=== PATIENT | female | born 1980 | race Caucasian/White ===

== ENCOUNTER 2020-05-02 21:37 | Emergency (ER) | payer OTHER, SELFPAY ==
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
--- NOTE | 2020-05-02 21:45 | ECG_ITS ---
Measurements Intervals [place] Rate: 116 P: 248 CT: 236 QRS: 91 QRSD: 92 T: 62 QT: 333 QTc: 463 Interpretive Statements SINUS TACHYCARDIA RIGHT AXIS DEVIATION MINIMAL Q WAVES- INF/LAT LEADS BASELINE WANDER- I, V1-V2, V4-V6 ABNORMAL ECG Electronically Signed On 05-03-2020 6:57:38 CDT by Thompson Iniguez D.O.
[2020-05-02 21:50] VITALS: BP 135/80; PULSE 108; RESP 18; TEMP 36.8; O2SAT 98
[2020-05-02 22:04] LABS: Basophils Absolute Auto 0.06 K/mm3 (0.00-0.10); Basophils Percent Auto 0.7 % (0.0-1.0); Eosinophils Absolute Auto 0.06 K/mm3 (0.02-0.50); Eosinophils Percent Auto 0.7 % (1.0-6.0); Hematocrit 41.4 % (35.0-49.0); Hemoglobin 14.3 g/dL (12.0-15.0); Immature Granulocyte Absolute 0.02 K/mm3 (0.00-0.00); Immature Granulocyte Percent A 0.2 % (0.0-0.0); Lymphocytes Absolute Auto 3.12 K/mm3 (1.10-4.50); Mean Corpuscular HGB Conc 34.5 g/dL (32.0-36.0); Mean Corpuscular Hemoglobin 35.5 pg (27.0-31.0); Mean Corpuscular Volume 102.7 fL (78.0-102.0); Mean Platelet Volume 9.2 fl (9.2-11.8); Monocytes Percent Auto 8.3 % (2.0-11.0); Neutrophils Absolute Auto 4.5 K/mm3 (1.7-7.2); Neutrophils Percent Auto 53.1 % (50.0-70.0); Platelet Count Result 327 K/mm3 (150-420); Red Blood Count 4.03 M/mm3 (4.20-5.40); Red Cell Distribution Width 13.2 % (11.6-14.4); White Blood Count 8.4 K/mm3 (4.8-10.8)
[2020-05-02 22:28] LABS: Alanine Aminotransferase 57 U/L (14-59); Albumin Level 3.8 g/dL (3.4-5.0); Alkaline Phosphatase 68 U/L (46-116); Anion Gap 18.9 mmol/L (7-16); Aspartate Amino Transferase 51 U/L (15-37); Bilirubin,Total 0.3 mg/dL (0.00-1.00); Blood Urea Nitrogen 8 mg/dL (7-18); Calcium 8.6 mg/dL (8.5-10.1); Carbon Dioxide 22 mmol/L (21-32); Chloride 103 mmol/L (98-108); Estimated CRCL calculation 61 ml/min; Estimated Glomerular Filt Rate > 60; Glucose 82 mg/dL (70-99); Osmolality Calculated 287 mOsm/kg (285-295); Potassium 3.9 mmol/L (3.5-5.1); Salicylate 6.2 mg/dL (2.8-20.0); Sodium 140 mmol/L (136-145); Thyroid Stimulating Hormone 2.04 uIU/mL (0.36-3.74); Total Protein 7.5 g/dL (6.4-8.2)
[2020-05-02 22:34] LABS: Acetaminophen 0 ug/mL (10-30)
[2020-05-02 22:35] LABS: Ethanol 366 mg/dL (0-6)
[2020-05-02] MEDS: TETANUS,DIPHTHERIA,AC PERTUSSIS ADULT 0.5 ML (ADACEL) IM (22:38)
[2020-05-02 22:46] LABS: Add Urine Microscopic? YES; Appearance Urine Clear (Clear); Bilirubin Urine Negative (Negative); Blood Urine 1+ (Negative); Color Urine Yellow (Yellow); Glucose Urine UA Negative (Negative); Ketones Urine Negative (Negative); Leukocyte Esterase Ur Negative LEU/UL (Negative); Nitrate Urine Negative (Negative); Protein Urine Negative (Negative); Specific Grav Ur <= 1.005 (1.010-1.020); Urobilinogen Urine 0.2 mg/dL (0.2-1.0); pH Urine 5.5 (5.0-8.0)
[2020-05-02 22:53] LABS: Amphetamine Screen Urine Negative (Negative); Barbiturate Screen Urine Negative (Negative); Benzodiazepines Screen Urine Negative (Negative); Cannabinoid Screen Urine Positive (Negative); Cocaine Screen Urine Negative (Negative); Methadone Screen Urine Negative (Negative); Opiate Screen Urine Negative (Negative); Phencyclidine Screen Urine Negative (Negative)
[2020-05-02 22:59] LABS: Bacteria Urine 2+ /hpf; RBC Urine 0-2 /hpf (0-2); Squamous Epithelial Cell Urine Rare /hpf (Few); WBC Urine 0-3 /hpf (0-3)
--- NOTE | 2020-05-03 01:51 | PC.NURSE ---
Call placed to 2nd floor for ED Hold until pt. can be evaluated in AM. Pt. to go to Rm [id number].
[2020-05-03 02:00] VITALS: BP 107/70; PULSE 104; RESP 20; TEMP 36.7; O2SAT 95
--- NOTE | 2020-05-03 02:27 | PC.NURSE ---
To room via w/c from ER accompanied by staff. Alert oriented color good. Dressing L wrist D&I. Pt states is hungry. [place] sdandwich & isela mist given. Sitter in room.
--- NOTE | 2020-05-03 02:43 | PC.NURSE ---
Pt has not voiced ideas of harming self since to room.
--- NOTE | 2020-05-03 03:00 | PC.NURSE ---
Pt ambulated to BR gait steady. Pt voided. Remains alert, cooperative. No voiced ideas of harming self.
[2020-05-03] MEDS: LORazepam 0.5 MG TABLET PO (03:06)
--- NOTE | 2020-05-03 03:09 | PC.NURSE ---
Ativan 0.5mg po given for sleep, per request. Sitter remains in room.
--- NOTE | 2020-05-03 03:20 | PC.NURSE ---
Resting quietly, resp even. TV on. Sitter in room. No voiced ideas of harming self.
[2020-05-03 04:00] VITALS: BP 105/56; PULSE 86; RESP 20; TEMP 36.7; O2SAT 94
--- NOTE | 2020-05-03 04:01 | PC.NURSE ---
Has slept for short intervals, resp even. Cooperative, alert. No voiced ideas of harming self. Sitter in room.
--- NOTE | 2020-05-03 04:50 | PC.NURSE ---
Sleeping, resp even. No signs of discomfort noted. No voiced ideas of causing harm to self . Sitter in room.
--- NOTE | 2020-05-03 05:54 | PC.NURSE ---
Watching TV. No signs of discomfort noted. No voiced ideas of doing harm to self.
[2020-05-03 06:03] VITALS: BP 100/70; PULSE 110; RESP 20; TEMP 36.2; O2SAT 97
[2020-05-03] MEDS: ACETAMINOPHEN 500 MG TABLET 1000 MG PO ×2 (07:27→14:15)
[2020-05-03 07:49] VITALS: BP 108/78; PULSE 103; RESP 20; TEMP 36.7; O2SAT 96
--- NOTE | 2020-05-03 08:20 | PC.NURSE ---
PT RESTING PER BED. ATE 50% OF BREAKFAST. STATES PAIN TO L WRIST IS BETTER. RATES A 9 ON 1-10 SCALE. L WRIST PROPPED UP ON PILLOW. PT DENIES SUICIDAL IDEATIONS BUT STATES SHE IS SAD. SHE'S TEARFUL AT TIMES. REMAINS IN DIRECT OBSERVATION OF NURSE.
[2020-05-03 08:31] LABS: Ethanol 42 mg/dL (0-6)
--- NOTE | 2020-05-03 08:50 | PC.NURSE ---
PT SLEEPING. NO DISTRESS NOTED. REMAINS IN DIRECT OBSERVATION OF NURSE.
--- NOTE | 2020-05-03 09:11 | PC.NURSE ---
[facility] NOTIFIED OF NEED FOR CONSULT PER DR. OH'S ORDER.
--- NOTE | 2020-05-03 09:19 | PC.NURSE ---
PT CONTINUES TO SLEEP. NO DISTRESS NOTED. REMAINS IN DIRECT OBSERVATION OF NURSE.
--- NOTE | 2020-05-03 09:56 | PC.NURSE ---
PT UP TO BR TO VOID AND BACK TO BED. GAIT STEADY. CONTINUES TO DENY SUICIDAL THOUGHTS OR IDEATIONS. RESTING IN BED WITHOUT COMPLAINT. REMAINS IN DIRECT OBSERVATION OF NURSE.
--- NOTE | 2020-05-03 10:21 | PC.NURSE ---
PT SLEEPING, NO DISTRESS NOTED. PT CONTINUES TO BE IN DIRECT OBSERVATION OF NURSE.
[2020-05-03 10:53] VITALS: BP 124/83; PULSE 102; RESP 20; TEMP 36.7; O2SAT 97
--- NOTE | 2020-05-03 10:55 | PC.NURSE ---
[facility] called to notify they will be here as soon as they can.
--- NOTE | 2020-05-03 10:55 | PC.NURSE ---
WATCHING TV PER BED. DENIES SUICIDAL THOUGHTS. STATES SHE'S JUST SAD . HAS NO OTHER COMPLAINTS. STATES L WRIST ISN'T THROBBING MUCH EARLIER. REMAINS IN DIRECT OBSERVATION OF NURSE.
--- NOTE | 2020-05-03 11:25 | PC.NURSE ---
Pt sleeping. Remains in direct observation of nurse.
--- NOTE | 2020-05-03 11:46 | PC.NURSE ---
[facility] here consulting with patient in room.
--- NOTE | 2020-05-03 12:16 | PCDIET ---
[facility] counselor has completed her evaluation and recommends inpatient placement to a psychiatric facility. Dr. Avila notified of plan. [facility] placing calls to facilities searching out placement.
--- NOTE | 2020-05-03 12:49 | PCDIET ---
Pt resting per bed. Continues to deny suicidal ideations. Kept chips off lunch tray for later. States she is not hungry at this time. Remains in direct observation of nurse.
--- NOTE | 2020-05-03 13:20 | PC.NURSE ---
Pt sleeping. Remains in sight of nurse.
--- NOTE | 2020-05-03 14:27 | PC.NURSE ---
Kwesi MANDUJANO from [facility] in [place] to collect information on patient to take to [facility] assessment team. Pt resting per bed. denies suicidal ideations at present.
--- NOTE | 2020-05-03 14:49 | PC.NURSE ---
Pt sleeping. No distress noted. Remains in direct vision of nurse.
[2020-05-03 17:03] VITALS: BP 121/74; PULSE 90; RESP 20; TEMP 36.2; O2SAT 97
--- NOTE | 2020-05-03 17:26 | PC.NURSE ---
Savanna from [facility] in [place] called and stated they would accept patient. ER notified. 05/03/2020 @ 2160
--- NOTE | 2020-05-03 17:28 | PC.NURSE ---
[facility] notified of need for transfer.
--- NOTE | 2020-05-03 17:29 | PC.NURSE ---
1530 Patient resting quietly in bed. No c/o.
--- NOTE | 2020-05-03 17:30 | PC.NURSE ---
1630 Patient up to bathroom. Gait steady. Returned to bed Sitting up in bed. Pleasant and cooperative. Noted to be tearful. Nurse explained that there is a room available for her at the [facility] in [place]. Patient agreeable to transfer to the facility.
--- NOTE | 2020-05-03 17:33 | PC.NURSE ---
1730 Patient sitting up in bed watching TV. No c/o or suicidal ideation verbalized.
--- NOTE | 2020-05-03 18:10 | PC.NURSE ---
1800 [facility] here to transfer patient to [facility].
--- NOTE | 2020-05-03 18:11 | PC.NURSE ---
[address] in [facility] notified of patient leaving by ambulance and ETA 2 hours.
== END 2020-05-03 18:00 ==
LOC: CHSED 05-03 09:13 → CHS2ND 05-03 09:41
PROVIDERS: Emergency Provider Emergency Medicine
DX: S61.512A Laceration without foreign body of left wrist, initial encounter (principal); F32.2 Major depressive disorder, single episode, severe without psychotic features; F10.920 Alcohol use, unspecified with intoxication, uncomplicated; X78.1XXA Intentional self-harm by knife, initial encounter
CPT/HCPCS: 12002; 36415; 80053; 80307; 81001; 84443; 85025; 90471; 90715; 93005; 99284; 99285; A9270

== ENCOUNTER 2023-04-02 12:35 | Emergency (ER) | payer OTHER, SELFPAY ==
[2023-04-02 12:39] VITALS: BP 130/79; PULSE 98; RESP 20; TEMP 36.8; O2SAT 98
[2023-04-02 13:08] LABS: Basophils Absolute Auto 0.04 K/mm3 (0.00-0.10); Basophils Percent Auto 0.5 % (0.0-1.0); Eosinophils Absolute Auto 0.02 K/mm3 (0.02-0.50); Eosinophils Percent Auto 0.2 % (1.0-6.0); Hematocrit 35.9 % (35.0-49.0); Hemoglobin 11.3 g/dL (12.0-15.0); Immature Granulocyte Absolute 0.03 K/mm3 (0.00-0.00); Immature Granulocyte Percent A 0.4 % (0.0-0.0); Lymphocytes Absolute Auto 1.65 K/mm3 (1.10-4.50); Lymphocytes Percent Auto 19.3 % (18.0-42.0); Mean Corpuscular HGB Conc 31.5 g/dL (32.0-36.0); Mean Corpuscular Hemoglobin 28.9 pg (27.0-31.0); Mean Corpuscular Volume 91.8 fL (78.0-102.0); Mean Platelet Volume 8.6 fl (9.2-11.8); Monocytes Absolute Auto 0.66 K/mm3 (0.10-0.90); Monocytes Percent Auto 7.7 % (2.0-11.0); Neutrophils Absolute Auto 6.2 K/mm3 (1.7-7.2); Neutrophils Percent Auto 71.9 % (50.0-70.0); Platelet Count Result 371 K/mm3 (150-420); Red Blood Count 3.91 M/mm3 (4.20-5.40); Red Cell Distribution Width 14.6 % (11.6-14.4); White Blood Count 8.6 K/mm3 (4.8-10.8)
--- NOTE | 2023-04-02 13:09 | ED.NAVMDI ---
HPI - Nausea/Vomiting/Diarrhea General Chief complaint: Nausea/Vomiting/Diarrhea Stated complaint: cirrhohis/not feeling well Source: patient Mode of arrival: ambulatory Limitations: no limitations History of Present Illness HPI Narrative: Patient is here with right upper quadrant acute on chronic abdominal pain. Patient has typically around a 7/10 pain. Patient is currently having 8 to 9/10. Patient has known cirrhosis of the liver. She has not drank alcohol since July 2022. patient's family told her to come in for further workup and evaluation of her pain. She has associated nausea and vomiting without diarrhea. MD elicited complaint: nausea and vomiting Onset (ago): day(s) (2) Description of vomiting: watery Radiation: RUQ Pain consistency: constant Severity: moderate Pain scale (0-10): 9 Quality: sharp Exacerbating factors: eating Relieving factors: none Context: other ( Acute on chronic pain of the right upper quadrant) Associated symptoms: denies other symptoms Related Data Home Medications Medication Instructions Recorded Confirmed lactulose 10 gram/15 mL oral 15 ml PO DAILY 04/02/23 04/02/23 solution pantoprazole 40 mg tablet,delayed 40 mg PO DAILY 04/02/23 04/02/23 release spironolactone 100 mg tablet 100 mg PO DAILY 04/02/23 04/02/23 Allergies Allergy/AdvReac Type Severity Reaction Status Date / Time No Known Allergies Allergy Verified 04/02/23 14:04 Review of Systems Review of Systems: patient has nausea and vomiting and otherwise right upper quadrant pain as noted above; otherwise 10 point review of systems is negative All systems reviewed & are unremarkable except as noted in HPI and below ( history of present illness) [facility] Past Medical History Medical History (Updated 05/05/20 @ 00:00 by Ortega Kuo) Depression Surgical History Surgical History H/O tubal ligation Status post laparotomy complication of tubal ligation Social History Social History Smoking status: Current every day smoker Alcohol intake: current Substance use: never Living arrangements: alone Occupation/Education: unemployed Exam Narrative: acute on chronic right upper quadrant tenderness; no swelling or edema or ascites Const: General: no acute distress Nutritional Appearance: thin Orientation/consciousness: patient oriented x3 Limitations: no limitations HENMT: Head: normal to inspection Eyes: Conjunctivae: conjunctivae normal Neck: Neck: normal visual inspection Chest: Chest palpation & inspection: normal inspection of the chest Resp: Effort & Inspection: normal respiratory effort Cardio: Rate: regular rate Rhythm: regular rhythm Heart sounds: no murmurs GI: Inspection: distended GI Palp: Yes Soft to palpation, Yes Tenderness to palpation present (GI) ( right upper quadrant), No Guarding due to palpation present (GI), No Rigid due to palpation, No Hernia present, Yes Palpable mass present ( known enlarged liver) and No Rebound tenderness present Auscultation: normal bowel sounds : General: Yes bladder normal to palpation Back/Spine/Pelvis: Back: no CVA tenderness Skin: General skin exam: normal color and no jaundice Neuro: General: patient oriented x3, moves all extremities, no meningeal signs, no focal motor deficits and CN's II-XI intact bilaterally Extrem: General: normal to inspection, no clubbing, cyanosis or edema, no pedal edema and no edema Psych: Mental Status: mental status grossly normal Affect: normal affect Attitude: cooperative Course Course Emergency Course: Patient was notified that a urinary tract infection was found and not cirrhosis related changes at this time. Vital Signs Vital signs: Vital Signs Temperature 36.8 C 04/02/23 12:39 Pulse Rate 98 04/02/23 12:39 Respiratory Rate 20 04/02/23 12:39
[2023-04-02 13:20] LABS: Appearance Urine Slightly Cloudy (Clear); Bilirubin Urine 1+ (Negative); Blood Urine Negative (Negative); Color Urine Yellow (Yellow); Glucose Urine UA Negative (Negative); Ketones Urine Negative (Negative); Leukocyte Esterase Ur 1+ (Negative); Nitrate Urine Negative (Negative); Protein Urine Trace (Negative); Specific Grav Ur 1.025 (1.010-1.020)
[2023-04-02 13:24] LABS: Add Urine Microscopic? YES
[2023-04-02 13:25] LABS: Bacteria Urine 2+ /hpf; RBC Urine None seen /hpf (0-2); Squamous Epithelial Cell Urine Moderate /hpf (Few)
[2023-04-02 13:26] LABS: Pregnancy On Board Control Positive; Urine Pregnancy Test Negative
[2023-04-02 13:27] LABS: Alanine Aminotransferase 18 U/L (14-59); Albumin Level 3.3 g/dL (3.4-5.0); Alkaline Phosphatase 152 U/L (46-116); Ammonia 22 umol/L (11-32); Anion Gap 11 mmol/L (8-16); Aspartate Amino Transferase 36 U/L (15-37); Bilirubin,Total 0.9 mg/dL (0.00-1.00); Blood Urea Nitrogen 12 mg/dL (7-18); Calcium 10.3 mg/dL (8.5-10.1); Carbon Dioxide 25 mmol/L (21-32); Chloride 99 mmol/L (98-108); Estimated Glomerular Filt Rate > 60; Glucose 98 mg/dL (70-99); Osmolality Calculated 279 mOsm/kg (285-295); Potassium 3.3 mmol/L (3.5-5.1); Sodium 135 mmol/L (136-145)
[2023-04-02] MEDS: CEPHALEXIN 500 MG CAPSULE PO (13:58)
[2023-04-02] MEDS: POTASSIUM CHLORIDE 20 MEQ ER TABLET PO (13:59)
[2023-04-02 14:36] VITALS: BP 125/97; PULSE 105; RESP 20; TEMP 36.7; O2SAT 99
== END 2023-04-02 14:49 | disposition home or self-care (01) ==
PROVIDERS: Emergency Provider Emergency Medicine
DX: N39.0 Urinary tract infection, site not specified (principal); R10.11 Right upper quadrant pain; R11.2 Nausea with vomiting, unspecified; F17.210 Nicotine dependence, cigarettes, uncomplicated
CPT/HCPCS: 36415; 80053; 81001; 81025; 82140; 85025; 99283; A9270

== ENCOUNTER 2023-04-29 17:54 | Emergency (ER) | payer OTHER, SELFPAY ==
[2023-04-29 18:03] VITALS: BP 155/96; PULSE 90; RESP 18; TEMP 37.5; O2SAT 97
--- NOTE | 2023-04-29 18:16 | ED.GENADULT ---
HPI - General Adult General Chief complaint: Nausea/Vomiting/Diarrhea Stated complaint: n/v Time Seen by Provider: 04/29/23 18:03 Source: patient Mode of arrival: ambulatory Limitations: no limitations History of Present Illness HPI narrative: Patient is a 42-year-old female with known cirrhosis of the liver secondary to alcoholism in the past. She has not drank in 1 years time. She is here for 2nd time this week secondary to nausea and vomiting. She saw her liver specialist yesterday and they gave her Zofran. I saw her earlier this week and did a full workup with stable cirrhosis. She just had an ultrasound this week that showed no cancer of the liver and stable findings. Her biggest complaint is nausea and vomiting with the headache. No other complaints at this time. She does have chronic edema of ascites. patient had a recent UTI which is treated at this time and no further problems. Onset (ago): hour(s) (2) Location: head Radiation: non-radiation Severity: mild Severity scale (1-10): 3 Quality: sharp Pain Consistency: constant Relieving factors: none Exacerbating factors: none Associated symptoms: nausea/vomiting Treatments prior to arrival: none Related Data Home Medications Medication Instructions Recorded Confirmed lactulose 10 gram/15 mL oral 15 ml PO DAILY 04/02/23 04/29/23 solution pantoprazole 40 mg tablet,delayed 40 mg PO DAILY 04/02/23 04/29/23 release spironolactone 100 mg tablet 100 mg PO DAILY 04/02/23 04/29/23 sertraline 50 mg tablet 50 mg PO DAILY 04/29/23 04/29/23 Allergies Allergy/AdvReac Type Severity Reaction Status Date / Time No Known Allergies Allergy Verified 04/29/23 18:00 Review of Systems Review of Systems: All systems reviewed & are unremarkable except as noted in HPI and below Constitutional: Constitutional: Reports no additional constitutional complaints Eyes: Eyes: Reports no additional eye complaints ENT: Reports system reviewed and no additional complaints, except as documented Cardiovascular: Cardiovascular: Reports no additional cardiovascular complaints Respiratory: Respiratory: Reports no additional respiratory complaints Gastrointestinal: Gastrointestinal: Reports no additional gastrointestinal complaints, Reports nausea and Reports vomiting Genitourinary: Genitourinary: Reports no additional female genitourinary complaints Musculoskeletal: Musculoskeletal: Reports no additional musculoskeletal complaints Integumentary/Breasts: Skin/Breast: Reports system reviewed and no additional complaints, except as docu Neurologic: Reports system reviewed and no additional complaints, except as documented and Reports headache(s) Psychiatric: Psychiatric: Reports no additional psychiatric complaints Endocrine: Endocrine: Reports no additional endocrine complaints Hematologic/Lymphatic: Hematologic/Lymphatic: Reports no additional hematologic/lymphatic complaints Allergic/Immunologic: Allergic/Immunologic: Reports no additional allergic/immunologic complaints PMFSH Past Medical History Medical History Depression Surgical History Surgical History H/O tubal ligation Status post laparotomy complication of tubal ligation Social History Social History Smoking status: Current every day smoker Alcohol intake: current Substance use: never Living arrangements: alone Occupation/Education: unemployed Exam Const: General: no acute distress Nutritional Appearance: well nourished Orientation/consciousness: patient oriented x3 Limitations: no limitations HENMT: Head: normal to inspection, no contusions, no hematomas and no lacerations Eyes: Conjunctivae: conjunctivae normal Neck: Neck: normal visual inspection Chest: Chest palpation & inspection: normal inspection of the chest Res
[2023-04-29] MEDS: PROMETHAZINE HCL 25 MG/ML AMPUL IM (18:24)
[2023-04-29] MEDS: KETOROLAC (*BKC) 60 MG/2 ML VIAL IM (18:25)
[2023-04-29 19:31] VITALS: BP 151/83; PULSE 71; RESP 16; O2SAT 96
== END 2023-04-29 20:00 | disposition home or self-care (01) ==
LOC: CHSED 18:50
PROVIDERS: Emergency Provider Emergency Medicine; PCP Internal Medicine
DX: R11.2 Nausea with vomiting, unspecified (principal); K70.31 Alcoholic cirrhosis of liver with ascites; F32.A Depression, unspecified; F17.200 Nicotine dependence, unspecified, uncomplicated
CPT/HCPCS: 96372; 99284; J1885; J2550